=== PATIENT | female | born 1995 | race Caucasian/White ===

== ENCOUNTER 2022-05-04 22:00 | Observation (INO) | payer OTHER ==
[~2022-05-04] VITALS: Ht 170.2 cm; Wt 91.6 kg
== END 2022-05-04 23:55 | disposition home or self-care (01) ==
LOC: SPU 22:00
PROVIDERS: ADMIT Obstetrics & Gynecology; ATTEND Obstetrics & Gynecology
DX: O26.852 Spotting complicating pregnancy, second trimester (principal); Z3A.22 22 weeks gestation of pregnancy
CPT/HCPCS: G0378